=== PATIENT | female | born 1980 | race Caucasian/White ===

== ENCOUNTER → 2023-10-18 | Emergency (ER) | payer OTHER ==
[2023-10-18 09:19] LABS: Absolute Lymphocytes (CBC) 1.3 K/uL (0.7-4.9); Hematocrit 42.2 % (36.0-45.0); Lymphocytes % 24.5 % (15.3-44.8); MCV 99.4 fL (80-100); MPV 6.9 fL (7.6-11.3); Platelets 369 thou/uL (152-406); RBC Red Blood Cell Count 4.25 M/uL (3.86-4.86)
[2023-10-18 09:33] LABS: ALT/SGPT 18 U/L (13-56); Albumin 3.2 g/dL (3.4-5.0); Alkaline Phosphatase 81 U/L (45-117); BUN Blood Urea Nitrogen 20 mg/dL (7-18); Bicarbonate 30 mEq/L (21-32); Bilirubin Total 0.3 mg/dL (0.2-1.0); Glomerular Filtration Rate 99 ml/min (=/>90); Glucose Level 98 mg/dL (74-106); Lipase 31 U/L (13-75); Potassium 3.7 mEq/L (3.5-5.1); Protein, Total 7.3 g/dL (6.4-8.2); Sodium Level 139 mEq/L (136-145)
[2023-10-18 09:34] LABS: AST/SGOT < 4 U/L (15-37)
[2023-10-18 09:38] LABS: Specific Gravity 1.029 (1.005-1.030)
--- NOTE | 2023-10-18 10:16 | RAD REPORT ---
EXAM DESCRIPTION: CT - Abdomen Pelvis W Contrast - 10/18/2023 9:53 am CLINICAL HISTORY: Abdominal pain COMPARISON: none. TECHNIQUE: Computed axial tomography of the abdomen pelvis was obtained. 100 cc Isovue-300 was admin istered intravenously. Oral contrast was not requested which limits evaluation of bowel and appendix All CT scans are performed using dose optimization technique as appropriate and may include automated exposure control or mA/KV adjustment according to patient size. FINDINGS: A small gallstones. Gallbladder wall not thickened. Postsurgical changes involve the stomach. Small hiatal hernia The liver, spleen, pancreas, adrenal and kidneys appear unremarkable. There is no evidence of diverticulitis. A normal appendix No adnexal mass Small to moderate umbilical hernia contains fat IMPRESSION: Cholelithiasis evidence of cholecystitis
--- NOTE | 2023-10-18 10:44 | ER ---
Nurse's Notes [facility] Name: Laverne Arias Age: 43 yrs Sex: Female : 1980 Arrival Date: 10/18/2023 Time: 08:25 Bed 13 Private MD: Diagnosis: Rectal bleeding;Essential (primary) hypertension Presentation: 10/18 08:37 Chief complaint: Patient states: yesterday evening i had a soft BM and when i wiped iw there was blood with clots, and that happened a couple of times, the water in the toilet was bright red, is having some cramping. Coronavirus screen: At this time, the client does not indicate any symptoms associated with coronavirus-19. Ebola Screen: Patient negative for fever greater than or equal to 101.5 degrees Fahrenheit, and additional compatible Ebola Virus Disease symptoms Patient denies exposure to infectious person. Patient denies travel to an Ebola-affected area in the 21 days before illness onset. No symptoms or risks identified at this time. Initial Sepsis Screen: Does the patient meet any 2 criteria? No. Patient's initial sepsis screen is negative. Does the patient have a suspected source of infection? No. Patient's initial sepsis screen is negative. Risk Assessment: Do you want to hurt yourself or someone else? Patient reports no desire to harm self or others. Onset of symptoms was October 17, 2023. 08:37 Method Of Arrival: Ambulatory iw 08:37 Acuity: SILVIA 3 iw Historical: - Allergies: 09:13 No Known Allergies; iw - PMHx: 09:13 Hypertensive disorder; iw - Immunization history:: Client reports receiving the 2nd dose of the Covid vaccine. - Social history:: Smoking status: Patient denies any tobacco usage or history of. - Family history:: not pertinent. - Hospitalizations: : No recent hospitalization is reported. Screenin:44 [facility] ED Fall Risk Assessment (Adult) Score/Fall Risk Level 0 - 2 = Low Risk. Abuse iw screen: Denies threats or abuse. Denies injuries from another. Nutritional screening: No deficits noted. Tuberculosis screening: No symptoms or risk factors identified. Assessment: 08:43 General: Appears in no apparent distress. Behavior is calm, cooperative. Pain: iw Complains of pain in abdomen Quality of pain is described as crampy. Neuro: Level of Consciousness is awake, alert, obeys commands, Oriented to person, place, time, situation, Moves all extremities. Full function. Cardiovascular: Patient's skin is warm and dry. Respiratory: Respiratory effort is even, unlabored, Respiratory pattern is regular. GI: Reports bloody stool. Derm: Skin is intact, is healthy with good turgor. Musculoskeletal: Range of motion: intact in all extremities. 11:19 Reassessment: Patient appears in no apparent distress at this time. No changes from ld1 previously documented assessment. Patient and/or family updated on plan of care and expected duration. Pain level reassessed. Patient is alert, oriented x 3, equal unlabored respirations, skin warm/dry/pink. Patient denies pain at this time. Vital Signs: 08:41 BP 143 / 100; Pulse 73; Resp 16; Temp 97.4; Pulse Ox 100% on R/A; iw 11:19 BP 136 / 94; Pulse 82; Resp 18; Pulse Ox 100% on R/A; ld1 ED Course: 08:29 Patient arrived in ED. mg5 08:37 Dax Harrington MD is Attending Physician. rn 08:40 Triage completed. iw 08:40 Arm band placed on. iw 09:07 Initial lab(s) drawn, by me, sent to lab. Inserted saline lock: 22 gauge in left iw antecubital area, using aseptic technique. Blood collected. 09:09 Mona Hussein, RN is Primary Nurse. iw 09:14 Patient has correct armband on for positive identification. Bed in low position. Call iw light in reach. Adult w/ patient. Provided Education on: call light, fall precautions. 09:55 CT Abd/Pelvis - IV Contrast Only In Process Unspecified. EDMS 10:43 Isaias Bolton MD is Referral Physician. rn 11:19 No provider procedures requiring assistance completed. IV discontinued, intact, ld1 bleeding controlled, No redness/swelling at site. Administered Medications: No medications were administered Medication: 08:44 VIS not applicable for this client. iw Outcome: :44 Discharge ordered by . rn 11:20 Discharged to home ambulatory, with family, ld1 11:20 Condition: stable 11:20 Discharge instructions given to patient, Instructed on discharge instructions, follow up and referral plans. Demonstrated understanding of instructions, follow-up care, 11:20 Patient left the ED. ld1 Signatures: Dispatcher [employer] Mona Jose RN RN iw Nieto, Roman, MD MD rn Sims, Lauren, RN RN Brenda Estevez 5
--- NOTE | 2023-10-18 10:44 | EDPHYS ---
Physician Documentation [facility] Name: Laverne Arias Age: 43 yrs Sex: Female : 1980 Arrival Date: 10/18/2023 Time: 08:25 Bed 13 Private MD: ED Physician Dax Harrington HPI: 10/18 09:48 This 43 yrs old Female presents to ER via Ambulatory with complaints of Bloody Stools, rn Abdominal Cramping. 09:48 The patient presents to the emergency department with rectal bleeding, a moderate rn amount, bright red blood with bowel movement, with multiple such episodes. Onset: The symptoms/episode began/occurred last night. Abdominal pain: described as crampy. Modifying factors: The symptoms are alleviated by nothing, the symptoms are aggravated by nothing. Associated signs and symptoms: Pertinent negatives: chest pain, diarrhea, dizziness at rest, dizziness when standing, fever, syncope, vomiting. Severity of symptoms: At their worst the symptoms were moderate in the emergency department the symptoms are unchanged. The patient has not experienced similar symptoms in the past. Patient reports rectal bleeding that began last night. Associated with lower abdominal cramping. No fever. No vomiting. No hematemesis.. Historical: - Allergies: 09:13 No Known Allergies; iw - PMHx: 09:13 Hypertensive disorder; iw - Immunization history:: Client reports receiving the 2nd dose of the Covid vaccine. - Social history:: Smoking status: Patient denies any tobacco usage or history of. - Family history:: not pertinent. - Hospitalizations: : No recent hospitalization is reported. ROS: 09:48 Constitutional: Negative for fever, chills, and weight loss, Eyes: Negative for injury, rn pain, redness, and discharge, Neck: Negative for injury, pain, and swelling, Cardiovascular: Negative for chest pain, palpitations, and edema, Respiratory: Negative for shortness of breath, cough, wheezing, and pleuritic chest pain, Abdomen/GI: Positive for lower abdominal cramping and bloody stool. Negative for diarrhea MS/Extremity: Negative for injury and deformity, Skin: Negative for injury, rash, and discoloration, Neuro: Negative for headache, weakness, numbness, tingling, and seizure, Exam: 09:48 Constitutional: This is a well developed, well nourished patient who is awake, alert, rn and in no acute distress. Patient ambulatory to triage in room without difficulty or assistance. Eyes: Normal conjunctiva Cardiovascular: Regular rate and rhythm. No pulse deficits. Respiratory: No increased work of breathing, no retractions or nasal flaring. Abdomen/GI: Soft, no focal tenderness. No rebound or guarding MS/ Extremity: Pulses equal, no cyanosis. Neuro: Awake and alert, GCS 15 Vital Signs: 08:41 BP 143 / 100; Pulse 73; Resp 16; Temp 97.4; Pulse Ox 100% on R/A; iw 11:19 BP 136 / 94; Pulse 82; Resp 18; Pulse Ox 100% on R/A; ld1 MDM: 08:37 Patient medically screened. rn 10:42 Differential diagnosis: hemorrhoids, AVM, polyp, colon cancer, colitis, diverticulitis. rn Data reviewed: vital signs, nurses notes, lab test result(s), radiologic studies, CT scan, and as a result, I will discharge patient. Consideration of Admission/Observation Escalation of care including admission/observation considered. Normal H\T\H, normal CT, normal vitals and asymptomatic would not allow me to transfer for higher level of care and we do not have GI available here. after discussion with patient, will go home and monitor with return precautions. All results given to patient in case she ends up going somewhere else. All questions answered.. Counseling: I had a detailed discussion with the patient and/or guardian regarding the historical points, exam findings, and any diagnostic results supporting the discharge/admit diagnosis, lab results, radiology results, the need for outpatient follow up, to return to the emergency department if symptoms worsen or persist or if there are any questions or concerns that arise at home. Special discussion: Based on the history and exam findings, there is no indication for further emergent testing or inpatient evaluation. I discussed with the patient/guardian the need to see the chick room supervisor for further evaluation of the symptoms. 10/18 08:49 Order name: CBC with Diff; Complete Time: : rn 10/18 08:49 Order name: CMP; Complete Time: : rn 10/18 08:49 Order name: Lipase; Complete Time: : rn 10/18 08:49 Order name: PT-INR; Complete Time: rn 10/18 08:49 Order name: Ptt, Activated; Complete Time: 09:41 rn 10/18 09:07 Order name: Test, Urine; Complete Time: 09:41 iw 10/18 08:49 Order name: CT Abd/Pelvis - IV Contrast Only; Complete Time: 10:16 rn 10/18 08:49 Order name: IV Saline Lock; Complete Time: 09:07 rn 10/18 08:49 Order name: Labs collected and sent; Complete Time: 09:07 rn Administered Medications: No medications were administered Disposition Summary: 10/18/23 10:44 Discharge Ordered Notes: Location: Home rn Problem: new rn Symptoms: have improved rn Condition: Stable rn Diagnosis - Rectal bleeding rn - Essential (primary) hypertension rn Followup: rn - With: Isaias Bolton MD - When: As needed - Reason: Recheck today's complaints, Re-evaluation by your physician Discharge Instructions: - Discharge Summary Sheet rn - Gastrointestinal Bleeding rn - Hypertension, Adult rn - Managing Your Hypertension rn - Lower Gastrointestinal Bleeding rn Forms: - Medication Reconciliation Form rn - Thank You Letter rn - Antibiotic sports apparel internship - Prescription Opioid Use rn - Patient Portal Instructions rn - Leadership Thank You Letter rn Signatures: Dispatcher [employer] Mona Jose, RN RN Dax Caldwell MD MD rn
[2023-10-18 11:48] VITALS: BP 136/94; TEMP 97.4; O2SAT 100
== END ==
LOC: ER 08:25
DX: K62.5 Hemorrhage of anus and rectum (principal); I10 Essential (primary) hypertension
CPT/HCPCS: 85025; 36415; 81025; 85610; 85730; 83690; 80053; 74177; Q9967